=== PATIENT | female | born 1965 | race African-American/Black ===

== ENCOUNTER 2017-12-05 17:59 | Emergency (ER) | payer OTHER, BC ==
[~2017-12-05] VITALS: Ht 165.1 cm; Wt 90.0 kg
[2017-12-05 18:10] VITALS: BP 195/97; PULSE 75; RESP 16; TEMP 98.4; O2SAT 99
[2017-12-05] MEDS ORDERED: LISI-515 PO (18:35)
[2017-12-05] MEDS ORDERED: KETOROLAC TROMETHAMINE 60 MG/2 ML (IM) VIAL IM ONE (19:30)
[2017-12-05] MEDS ORDERED: BACL20TA PO (19:35)
[2017-12-05] MEDS ORDERED: KETO10 PO (19:35)
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
== END 2017-12-05 21:20 | disposition home or self-care (01) ==
LOC: NEPD 17:59
DX: S16.1XXA Strain of muscle, fascia and tendon at neck level, initial encounter (principal); I10 Essential (primary) hypertension; V89.2XXA Person injured in unspecified motor-vehicle accident, traffic, initial encounter
CPT/HCPCS: 72040; 96372; 99283; J1885